=== PATIENT | female | born 1990 | race African-American/Black ===

== ENCOUNTER 2016-08-13 20:45 | Emergency (ER) | payer MEDICAID ==
[~2016-08-13] VITALS: Ht 175.3 cm; Wt 100.0 kg
[~2016-08-13 20:45] MED LIST: IBUP-988 PO
[2016-08-13 20:46] VITALS: BP 128/76; PULSE 102; RESP 20; TEMP 100.1; O2SAT 99
--- NOTE | 2016-08-13 21:23 | PD ---
HPI Chief Complaint: Cold / Flu Symptoms Time Seen by Provider: 21:21 Travel History International Travel<30 days: No Contact w/Intl Traveler<30days: No Traveled to known affect area: No History of Present Illness HPI Patient comes in complaining of cough and body aches. Patient states symptoms started yesterday. Patient states she is occasionally having productive cough. Denies any nausea, vomiting, diarrhea, fevers, abdominal pain, headache, sore throat, , or known sick contacts. Patient states chest hurts with deep inspiration and coughing. Patient denies doing anything for this prior to coming emergency department other than lying in bed today. PFSH Past Medical History Autoimmune Disease: Yes (HIV) Cardiovascular Problems: Yes (HTN) Diminished Hearing: No Headaches: Yes Hypertension: Yes Migraines: Yes ?: Unknown LMP: 08/08/16 : 4 Para: 5 Tubal Ligation: Yes (08/07) Past Surgical History Section: Yes (x 1) Neurologic Surgery: Yes (TRAUMATIC BRAIN SURGERY @ 5YRS OLD NOW WITH CHRONIC KUMAR AND MIGRAINES) Social History Alcohol Use: No Tobacco Use: No Substance Use: No Allergies-Medications (Allergen,Severity, Reaction): Coded Allergies: No Known Allergies (Verified , 08/13/16) Reported Meds & Prescriptions Reported Meds & Active Scripts Active Ventolin Hfa 18 GM Inh (Albuterol Sulfate) 90 Mcg/Act Aer 2 Puff INH Q4H PRN Review of Systems Except as stated in HPI: all other systems reviewed are Neg Physical Exam Narrative GENERAL: Well-developed, overly nourished, in no acute distress, and non-ill appearing. SKIN: Warm and dry. HEAD: Atraumatic. Normocephalic. EYES: Pupils equal and round. EOMI. No scleral icterus. No injection or drainage. ENT: No nasal bleeding or discharge. Mucous membranes pink and moist. Tympanic membranes pearly aviles bilaterally. Posterior pharynx nonerythematous without exudate. Uvula is midline. No tenderness to patient's sinuses to palpation. NECK: Trachea midline. No cervical lymphadenopathy. Supple. No nuclear rigidity. CARDIOVASCULAR: Regular rate and rhythm. No murmur appreciated. RESPIRATORY: No accessory muscle use. No respiratory distress. Clear to auscultation. Breath sounds equal bilaterally. MUSCULOSKELETAL: No obvious deformities. No clubbing. No cyanosis. No edema. Full range of motion. NEUROLOGICAL: Awake and alert. No obvious cranial nerve deficits. Motor grossly within normal limits. Normal speech. PSYCHIATRIC: Appropriate mood and affect; insight and judgment normal. Data Data Last Documented VS Vital Signs Date Time Temp Pulse Resp B/P Pulse Ox O2 Delivery O2 Flow Rate FiO2 08/13/16 21:39 16 98 Room Air 08/13/16 20:46 100.1 102 128/76 Orders Influenzae A/B Antigen (08/13/16 21:11) Chest, Single Ap (08/13/16 ) Ibuprofen (Motrin) (08/13/16 21:30) MDM Medical Decision Making Medical Screen Exam Complete: Yes Emergency Medical Condition: Yes Differential Diagnosis Influenza, pneumonia, bronchitis, viral syndrome, other Narrative Course The patient is non-ill appearing and is in no respiratory distress and comfortable. The patient moves air well and oxygen saturations are normal. Chest x-ray revealed no evidence of obvious consolidation of infiltrate. There is no clinical evidence to suggest pneumonia at this time. Plan of care and management were discussed with the patient who agreed with plan. The patient was instructed to follow up with their physician and instructed to return if worsens, progressively worsening shortness of breath or difficulty breathing, persistent fever, chest pains or discomfort, inability to keep medication or fluids down with or without vomiting, or as needed. Patient in no obvious distress upon re-evaluation. All pertinent laboratory/ Radiology result(s) discussed with patient. Patient was asked if they wanted to speak to my attending, which the patient did not wish to do at this time. Any questions/concerns in reference to patient diagnosis/condition discussed and clarified prior to patient's discharge. Reinforced sheer importance of close follow up with patient's primary physician or primary care clinic. Instructed patient to return to ED immediately, if symptoms return/worsen. Pt showed understanding of above instructions. Further instructions and recommendations were detailed in discharge paperwork. Pt ambulated without difficulty out of ED at discharge. Diagnosis Primary Impression: Acute viral syndrome Patient Instructions: General Instructions, Viral Syndrome (DC) Additional Instructions: Follow-up with your primary care physician in 2-3 days for reevaluation. Take all medication as prescribed. Use [id number] Tylenol and/or ibuprofen as needed for pain and/or fevers. Follow instructions on the packaging. Drink plenty of non-caffeinated and nonalcoholic fluids. Return to the emergency department if symptoms get worse. Med/Other Pt SpecificInfo: Prescription(s) given Scripts Albuterol 18 GM Inh (Ventolin Hfa 18 GM Inh)90 Mcg/Act Aer2 Puff INH Q4H PRN ( COUGH) #1 INHALER Ref 0 Prov:Skylar Bernal MD 08/13/16 Disposition: 01 DISCHARGE HOME Condition: Stable Raj Garcia Aug 13, 2016 21:23
[2016-08-13] MEDS ORDERED: IBUPROFEN 800 MG TAB PO ONE (21:30)
--- NOTE | 2016-08-13 21:46 | RADRPT ---
EXAM DATE/TIME: 08/13/2016 21:21 [facility] COMPARISON: CHEST SINGLE AP, June 18, 2014, 18:15. INDICATIONS : Chest pain and cough. MEDICAL HISTORY : None. SURGICAL HISTORY : None. ENCOUNTER: Initial ACUITY: 3 days PAIN SCORE: 8/10 LOCATION: Bilateral chest FINDINGS: A single view of the chest demonstrates the lungs to be symmetrically aerated without evidence of mas s, infiltrate or effusion. The cardiomediastinal contours are unremarkable. Osseous structures are intact. CONCLUSION: No acute disease. Domenico Salinas MD on August 13, 2016 at 21:44 Board Certified Radiologist. This report was verified electronically.
[2016-08-13] MEDS ORDERED: VENTAER INH (22:32)
== END 2016-08-13 22:49 | disposition home or self-care (01) ==
LOC: NEPB 20:45
DX: R07.1 Chest pain on breathing (principal); B34.9 Viral infection, unspecified; R05 Cough; I10 Essential (primary) hypertension
CPT/HCPCS: 71010; 87804; 99283